=== PATIENT | female | born 1940 | race Caucasian/White ===

== ENCOUNTER 2023-08-01 10:27 | Day surgery (SDC) | payer MEDICARE, OTHER ==
[2023-08-01] MEDS ORDERED: BUPIVACAINE 0.5% VIAL IJ ONE (10:28)
[2023-08-01] MEDS ORDERED: Depo-Medrol 40 MG/ML IM ONE (10:28)
[2023-08-01] MEDS ORDERED: XYLOCAINE-MPF 1% 5ML SDV IJ ONE (10:28)
--- NOTE | 2023-08-01 13:50 | XRAY ---
Indication: Bilateral hip injection. Intraoperative fluoroscopy provided for 43 seconds. 2 digital spot images submitted for interpretation demonstrates needle tip projecting lateral to the left and right femur necks. Small amount of contrast injected for both needle tip placement. Correlate with intraoperative findings/report.
--- NOTE | 2023-08-01 14:17 | XRAY ---
43 seconds of fluoroscopy was used in surgery for a bilateral intra-articular hip injection.
[2023-08-01] MEDS ORDERED: Lactated Ringers 1,000 ML IV ONE (15:33)
== END 2023-08-01 13:03 | disposition home or self-care (01) ==
LOC: SDC-PAIN 10:27
PROVIDERS: ATTEND Psychiatry & Neurology Pain Medicine
DX: M16.0 Bilateral primary osteoarthritis of hip (principal); E11.9 Type 2 diabetes mellitus without complications; Z79.899 Other long term (current) drug therapy
CPT/HCPCS: 20610; 73521; 77002; 82947; J1030; Q9966

== ENCOUNTER 2024-04-09 13:32 | Day surgery (SDC) | payer MEDICARE ==
[2024-04-09] MEDS ORDERED: BUPIVACAINE 0.5% VIAL IJ ONE (13:33)
[2024-04-09] MEDS ORDERED: Depo-Medrol 40 MG/ML IM ONE (13:33)
[2024-04-09] MEDS ORDERED: LIDOCAINE HCL 1% 50 MG/5 ML VL PF IJ ONE (13:33)
--- NOTE | 2024-04-09 16:49 | XRAY ---
Indication: Right shoulder and subacromial bursa injection. Intraoperative fluoroscopy provided for 13 seconds. 2 digital spot images submitted for interpretation demonstrates anterior needle tip projecting over right glenohumeral joint superiorly. Second needle tip subacromial. Small amount of contrast injected for both needle tip placement. Correlate with intraoperative findings/report.
--- NOTE | 2024-04-09 20:10 | XRAY ---
13 seconds of fluoroscopy was used in surgery for a right intra-articular shoulder and subacromial bursa injection.
== END 2024-04-09 16:51 | disposition home or self-care (01) ==
LOC: SDC-PAIN 13:32
PROVIDERS: ATTEND Psychiatry & Neurology Pain Medicine
DX: M19.011 Primary osteoarthritis, right shoulder (principal); M75.51 Bursitis of right shoulder; E11.9 Type 2 diabetes mellitus without complications
CPT/HCPCS: 20610; 73030; 77002; 82947; J2001; Q9966